=== PATIENT | female | born 1990 | race Caucasian/White ===

== ENCOUNTER 2022-01-31 07:38 | Inpatient (IN) ==
[2022-01-31] MEDS ORDERED: OXYTOCIN 30 UNITS/500 ML BAG IV PRN ×3 (08:55→17:57)
[2022-01-31] MEDS: LACTATED RINGER'S 1,000 ML IV PRN ×2 (09:20→12:41)
[2022-01-31 09:21] LABS: Hematocrit (blood only) 36.3 % (37-47); Hemoglobin 12.2 g/dL (12.0-16.0); Mean Corpuscular Hgb Conc 33.6 g/dL (32-36); Mean Corpuscular Volume 92.4 fL (80-100); Mean Platelet Volume 10.1 fL (7.4-10.4); Platelet Count 249 K/uL (130-400); RDW Coefficient of Variation 14.1 % (11.5-14.5); RDW Standard Deviation 47.3 fL (36.4-46.3); Red Blood Count 3.93 M/uL (4.2-5.4); White Blood Count 12.89 K/uL (4.8-10.8)
--- NOTE | 2022-01-31 09:22 | History & Physical Report ---
Date of Service January 31, 2022 Assessment & Plan (1) Macrosomia affecting management of mother in third trimester: Plan: induction with Oxytocin planned Admission and Anticipated Discharge Date Admission Date: January 31, 2022 History of Present Illness Chief Complaint: induction of labor for macrosomia Primary Care Provider: JEAN PCP 31 F [id number] at 39.1 weeks admitted for induction of labor due to large baby. Allergies Allergy/AdvReac Type Severity Reaction Status Date / Time No Known Allergies Allergy Unverified 01/31/22 07:52 Home Medications Medication Instructions Recorded Confirmed Type Multivit/Min/Iron/Fol Ac/Pren 1 tab PO DAILY #0 tab 03/21/14 01/31/22 History ( Vitamin) Ibuprofen 600 mg PO Q4H PRN #30 tab 03/23/14 01/31/22 Rx 1 tab PO DAILY 01/31/22 01/31/22 History Tums 2 tab PO DIRECTED PRN 01/31/22 01/31/22 History Patient History Surgical History H/O LEEP Social History Smoking Status: Never smoker Hx Alcohol Use: No Hx Substance Use: No Preferred Language: Portuguese Dental Laboratory Technician Required: No Beliefs That Will Affect Care: None marital status: Current Living Situation: Spouse Current Living Situation Comment: AND DAUGHTER (8 YEARS) Other Information That Helps Us Care for You: No Feels Safe at Home: Yes Safety Concerns: Feels Safe At This Time OB History 3rd degree tear with last delivery [employer] History LOUIE 3 with LEEP 2018 Review of Systems All systems reviewed & are unremarkable except as noted in HPI & below Physical Exam Constitutional: WD/WN, vitals as above Eyes: PERRL, conjunctivae normal, anicteric sclerae Respiratory: normal respiratory effort, lungs clear to auscultation Cardiovascular: RRR, no murmur, no edema Skin: no rashes, warm and dry Neurologic: patellar DTR's 2+ bilat, sensation intact Psychiatric: A+Ox3, euthymic affect Genitourinary: no vaginal lesions, no adnexal mass normal external appearance OB Exam Abdomen: + fundal height, + vertex and + estimated weight (8.5-9 lbs) Manual OB Exam: + cervical dilation 2 cm and 3 cm, + cervical effacement 50% and + station high OB Exam Monitor Tracing: + external FHT monitor used, + external uterine monitor used, + category I and + normal FHT variability Results & Data ([facility]) Vital Signs (Past 12 Hours) Vital Signs Temp Resp 01/31/22 08:00 36.7 C 18 Code Status & VTE Plan VTE Prophylaxis Plan VTE Prophylaxis will be ordered: No
[2022-01-31] MEDS ORDERED: ePHEDrine sulfate 50 MG/ML AMP ONE (12:15)
[2022-01-31] MEDS ORDERED: fentaNYL citrate 100 MCG/2 ML VIAL ONE (12:16)
[2022-01-31] MEDS ORDERED: SODIUM CHLORIDE 0.9% INJ 10 ML VIAL ONE (12:16)
[2022-01-31] MEDS ORDERED: BUPIVACAINE 0.25% 30 ML VIAL ONE ×2 (12:16→16:14)
[2022-01-31] MEDS ORDERED: fentaNYL 2MCG/ML ROPIVACAINE 1.25MG/ML 100 ML BAG EPI ONE (12:16)
[2022-01-31] MEDS ORDERED: NALBUPHINE HCL INJ 10 MG/ML AMP IV PRN (13:00)
[2022-01-31] MEDS ORDERED: diphenhydrAMINE 50 MG/ML VIAL IV PRN (13:00)
[2022-01-31] MEDS ORDERED: NALOXONE HCL 0.4 MG/1 ML VIAL/CARP IV PRN (13:00)
[2022-01-31] MEDS ORDERED: fentaNYL 2MCG/ML ROPIVACAINE 1.25MG/ML 100 ML BAG EPI PRN (13:00)
[2022-01-31] MEDS ORDERED: ONDANSETRON INJ 2 MG/ML 2 ML VIAL IV PRN (13:00)
[2022-01-31] MEDS ORDERED: ePHEDrine sulfate 50 MG/ML AMP IV PRN (13:00)
[2022-01-31] MEDS ORDERED: NALOXONE HCL 1 MG in SODIUM CHLORIDE 0.9% 1000ML 1,000 ML IV PRN (13:00)
[2022-01-31] MEDS ORDERED: PROMETHAZINE HCL 25 MG in SODIUM CHLORIDE 0.9% 50 ML IV PRN (13:00)
--- NOTE | 2022-01-31 13:00 | Anesthesiology Consultation ---
Date of Service January 31, 2022 Assessment & Plan Chart Review Chart Review: Patient NOT seen in Pre Admission Testing and Acceptable Risk for Labor Epidural Consults Requested none ASA ASA2 Proposed Anesthesia Anesthesia Type: Labor Epidural Risk / Benefits Reviewed With: PT / POA / Parent / Guardian, Accepts Plan and Informed Consent Obtained History Height/Weight Height: 5 ft 5 in Weight: 108.862 kg Allergies Allergy/AdvReac Type Severity Reaction Status Date / Time No Known Allergies Allergy Unverified 01/31/22 07:52 Medications Home Medications Medication Instructions Recorded Confirmed Last Taken Multivit/Min/Iron/Fol Ac/Pren 1 tab PO DAILY #0 tab 03/21/14 01/31/22 01/29/22 08:00 ( Vitamin) Ibuprofen 600 mg PO Q4H PRN #30 tab 03/23/14 01/31/22 Unknown 1 tab PO DAILY 01/31/22 01/31/22 01/30/22 08:00 Tums 2 tab PO DIRECTED PRN 01/31/22 01/31/22 01/30/22 21:00 Active Medications Generic Name Dose Route Start Last Admin Trade Name Freq PRN Reason Stop Dose Admin Lactated Ringer's 1,000 mls @ 125 mls/hr 01/31/22 08:55 01/31/22 12:50 Lr IV 02/02/22 08:54 125 mls/hr .Q8H PRN Infusion L&D Protocol Protocol Oxytocin 30 units in 500 mls @ 9 mls/hr 01/31/22 09:22 01/31/22 11:40 Pitocin IV 02/02/22 09:21 0.54 units/hr .Q24H PRN 9 mls/hr Labor Induction/Augmentation Titration Protocol 0.54 UNITS/HR Past Medical History Medical History (Updated 01/31/22 @ 11:48 by Neelima Wilson RN) Abscess, appendix Appendix removal Exercise / Class Metabolic Activity II 4-5 Yardwork/Stairs/Walk up hill Past Surgical History Surgical History H/O LEEP Past Anesthesia History No Hx of Anesthesia Complications and No Family Hx of Anesthesia Complications History of PONV No Hx of PONV and No Hx of Motion Sickness Social History Smoking Status: Never smoker Hx Alcohol Use: No Hx Substance Use: No substance use type: does not use Physical Exam Vital Signs Last Vital Signs Temp 36.7 C 01/31/22 08:00 Pulse 87 01/31/22 12:55 Resp 18 01/31/22 08:00 BP 132/72 01/31/22 12:52 Pulse Ox 97 01/31/22 12:55 ENMT Mouth: no dentition abnormality Thyromental Distance: > or= 3.5 Finger Breadths Mallampati Class: II Neck normal visual inspection Respiratory normal respiratory effort Auscultation: lungs clear to auscultation bilaterally Cardiovascular Rate/Rhythm: regular rate and regular rhythm Psychiatric Orientation: alert Testing Laboratory Results 01/31/22 09:05
--- NOTE | 2022-01-31 14:11 | Labor Progress Brief Note ---
Date of Service January 31, 2022 Assessment & Plan Admission and Anticipated Discharge Date Admission Date: January 31, 2022 Physical Exam Genitourinary: Manual OB Exam: + cervical dilation 3 cm, + cervical effacement 60%, + station -2 and + amniotic fluid clear OB Exam Monitor Tracing: + external FHT monitor used, + external uterine monitor used, + category I and + normal FHT variability AROM with Amni-hook clear fluid Results [facility] Data ([facility]) Vital Signs (Past 12 Hours) Vital Signs Temp Pulse Resp BP Pulse Ox 01/31/22 14:05 76 96 01/31/22 14:00 74 97 01/31/22 13:59 75 119/69 01/31/22 13:55 82 96 01/31/22 13:50 69 97 01/31/22 13:45 72 97 01/31/22 13:44 74 118/72 01/31/22 13:40 75 97 01/31/22 13:35 76 97 01/31/22 13:30 72 96 01/31/22 13:29 80 123/72 01/31/22 13:25 75 97 01/31/22 13:20 81 97 01/31/22 13:15 76 96 01/31/22 13:14 75 124/73 01/31/22 13:10 80 96 01/31/22 13:05 81 97 01/31/22 13:00 36.8 C 83 96 01/31/22 12:59 80 116/64 01/31/22 12:55 87 97 01/31/22 12:52 80 132/72 01/31/22 12:50 83 97 01/31/22 12:45 85 98 01/31/22 12:44 82 134/81 01/31/22 12:40 75 97 01/31/22 12:35 74 97 01/31/22 12:30 77 97 01/31/22 12:25 76 97 01/31/22 12:20 75 97 01/31/22 11:45 78 133/83 01/31/22 10:40 67 126/70 01/31/22 09:36 83 108/65 01/31/22 08:00 36.7 C 18
[2022-01-31] MEDS ORDERED: NURSING L&D Epidural Breakthrough Pain Update ONE (16:19)
--- NOTE | 2022-01-31 17:30 | Anesthesia Procedure Note ---
Date of Service January 31, 2022 Anesthesia Post Epidural Note Vital Signs Vital Signs: Temp Pulse Resp BP Pulse Ox 36.8 C 83 18 129/70 96 01/31/22 13:00 01/31/22 17:25 01/31/22 08:00 01/31/22 17:15 01/31/22 17:25 Notes Mental Status: alert / awake / arousable Nausea / Vomiting: adequately controlled Pain: adequately controlled Airway Patency, RR, SpO2: stable & adequate BP & HR: stable & adequate Hydration State: stable & adequate Neuraxial Anesthesia: was administered and sensory block is resolving Anesthetic Complications: no major complications apparent and Pt Satisfied with anesthetic care Epidural: Removed without complications and With tip intact
--- NOTE | 2022-01-31 17:52 | Delivery Summary ---
Vaginal Delivery Summary Date of Service January 31, 2022 Vaginal Delivery Summary Delivery Note live female JAME with delayed cord clamping and Apgars 8/9 weight pending. Cord blood obtained followed by spontaneous delivery of intact placenta. No tears. EBL 100 ml. Final sponge and instrument count are correct. Mom and baby stable.
[2022-01-31] MEDS ORDERED: BENZOCAINE 20% AER SPR 82.5 GM CAN EXT PRN (17:57)
[2022-01-31] MEDS ORDERED: bisacodyL 10 MG SUPP PR PRN (17:57)
[2022-01-31] MEDS ORDERED: ACETAMINOPHEN 325 MG TAB PO PRN (17:57)
[2022-01-31] MEDS ORDERED: IBUPROFEN 600 MG PO PRN (17:57)
[2022-01-31] MEDS ORDERED: HYDROCORTISONE ACETATE 25 MG SUPP PR PRN (17:57)
[2022-01-31] MEDS ORDERED: DIPHTHERIA/TETANUS/PERTUSSIS 0.5 ML SYR/VIAL IM ONE (17:57)
[2022-01-31] MEDS ORDERED: CALCIUM CARBONATE 500 MG CHEWABLE TAB PO PRN (18:26)
[2022-01-31] MEDS: IBUPROFEN 600 MG TAB PO PRN (21:23)
[2022-01-31] MEDS: DOCUSATE SODIUM 100 MG CAP PO SCH (21:23)
[2022-02-01] MEDS: IBUPROFEN 600 MG TAB PO PRN (04:00)
[2022-02-01 06:54] LABS: Hematocrit (blood only) 35.1 % (37-47); Mean Corpuscular Hemoglobin 31.1 pg (25-34); Mean Corpuscular Hgb Conc 34.2 g/dL (32-36); Mean Corpuscular Volume 90.9 fL (80-100); Mean Platelet Volume 10.1 fL (7.4-10.4); Platelet Count 219 K/uL (130-400); RDW Coefficient of Variation 14.2 % (11.5-14.5); RDW Standard Deviation 46.8 fL (36.4-46.3); Red Blood Count 3.86 M/uL (4.2-5.4); White Blood Count 15.19 K/uL (4.8-10.8)
[2022-02-01] MEDS ORDERED: PRENATAL VITAMIN 1 TAB PO SCH (08:00)
[2022-02-01] MEDS ORDERED: FERROUS SULFATE 325 MG TAB PO SCH (08:00)
[2022-02-01] MEDS: DOCUSATE SODIUM 100 MG CAP PO SCH (08:40)
[2022-02-01] MEDS ORDERED: NON-FORMULARY MEDICATION (Prenatal 1 TAB) PO SCH (09:00)
[2022-02-01] MEDS ORDERED: NON-FORMULARY MEDICATION (Multivit/Min/Iron/Fol Ac/Pren (Prenatal Vitamin) tablet) PO SCH (09:00)
--- NOTE | 2022-02-01 10:19 | Obstetrical Progress Note ---
Date of Service February 01, 2022 Assessment & Plan (1) Normal course: PPD 30 pt doing well wishes to be discharged home Results & Data ([facility]) Vital Signs (Past 12 Hours) Vital Signs Temp Pulse Resp BP Pulse Ox 02/01/22 08:05 37 C 73 18 108/74 02/01/22 04:05 37.0 C 70 16 130/78 97 02/01/22 00:15 36.8 C 71 16 116/75 95
[2022-02-01] MEDS ORDERED: MEASLES, MUMPS & RUBELLA VIRUS VIAL SQ ONE (16:54)
[2022-02-01] MEDS ORDERED: bisacodyL 5 MG TABEC PO SCH (20:00)
== END 2022-02-01 18:30 | disposition home or self-care (01) | DRG 807 ==
LOC: 4S1 07:38 → 4E2 20:10